=== PATIENT | male | born 1985 | race Caucasian/White ===

== ENCOUNTER 2018-01-05 08:37 | Emergency (ER) | payer OTHER, MEDICAID, SELFPAY | END 2018-01-05 09:23 | disposition home or self-care (01) | LOC: M ED 08:37 | DX: K08.89 Other specified disorders of teeth and supporting structures (principal); Z72.0 Tobacco use | CPT/HCPCS: 99282 ==

== ENCOUNTER → 2018-04-14 | Outpatient (REF) | payer OTHER ==
[~2018-04-14] MED LIST: CLEO300C2 PO
== END ==
LOC: M SFHCLERA 09:41
PROVIDERS: ATTEND Physician Assistant
DX: R50.9 Fever, unspecified (principal)